=== PATIENT | male | born 1980 | race American Indian/Alaskan Native ===

== ENCOUNTER 2018-11-14 17:36 | Emergency (ER) | payer SELFPAY ==
[2018-11-14 17:46] VITALS: BP 117/78
--- NOTE | 2018-11-14 18:37 | Emergency Department Report ---
ED Male HPI - General Chief complaint: Abdominal Pain Stated complaint: STOMACH PAIN Time Seen by Provider: 11/14/18 18:33 Source: patient, family, spanish interpreter Mode of arrival: Ambulatory Limitations: Language Barrier - History of Present Illness Initial comments: 38-year-old male comes in for not to the left groin/lower abdominal pain for 2 months. Patient reports she was seen one month ago in [place] and was given pain medication. Patient has not taken anything for pain in the last month. Patient reports that he's had more pain than usual. Patient denies any urinary difficulties no nausea no vomiting no pain in testicles. Patient denies any blood in urine. Patient has no past medical history currently takes no medications on a daily basis and has no known drug allergies. Patient reports pain is worse when he coughs walks or strain. He reports pain is better with nothing. MD Complaint: hernia -: month(s) (2) Location: left inguinal region Severity: severe Severity scale (0 -10): 8 Quality: aching Consistency: intermittent Improves with: none Worsens with: bowel movement, other (cough, strain, walk) denies: discharge, swelling, mass, urinary retention, blood in urine, dysuria, fever, nausea/vomiting, incontinence - Related Data Previous Rx's Medication Instructions Recorded Last Taken Type Ibuprofen [Motrin 600 MG tab] 600 mg PO Q8H #15 tablet 11/14/18 Unknown Rx Allergies Allergy/AdvReac Type Severity Reaction Status Date / Time No Known Allergies Allergy Unverified 11/14/18 17:44 ED Review of Systems ROS: Stated complaint: STOMACH PAIN Other details as noted in HPI Comment: All other systems reviewed and negative Genitourinary: other (left groin pain) ED Past Medical Hx - Past Medical History Previous Medical History?: No - Surgical History Past Surgical History?: No - Social History Smoking Status: Never Smoker Substance Use Type: None - Medications Home Medications: Home Medications Medication Instructions Recorded Confirmed Last Taken Type Ibuprofen [Motrin 600 MG tab] 600 mg PO Q8H #15 tablet 11/14/18 Unknown Rx ED Physical Exam - General Limitations: Language Barrier (niece is translating.) General appearance: alert, in no apparent distress - Head Head exam: Present: atraumatic, normocephalic - Eye Eye exam: Present: normal appearance, EOMI - ENT ENT exam: Present: mucous membranes moist - Neck Neck exam: Present: normal inspection - GI/Abdominal GI/Abdominal exam: Present: soft. Absent: distended, tenderness, guarding - Expanded Exam Expanded exam: Inguinal Hernia: Left (nonincarcerated or strangulated) - Extremities Exam Extremities exam: Present: normal inspection, full ROM - Neurological Exam Neurological exam: Present: alert, oriented X3 - Psychiatric Psychiatric exam: Present: normal affect, normal mood - Skin Skin exam: Present: warm, dry, intact, normal color. Absent: rash ED Course Vital Signs 11/14/18 17:44 Temperature 98.3 F Pulse Rate 66 Respiratory 16 Rate Blood Pressure 117/78 O2 Sat by Pulse 98 Oximetry ED Medical Decision Making - Medical Decision Making Patient evaluated by this provider Ibuprofen given for pain management Referral to general surgeon to be evaluated for left inguinal nonincarcerated non-strangulated hernia. Critical care attestation.: If time is entered above; I have spent that time in minutes in the direct care of this critically ill patient, excluding procedure time. ED Disposition Clinical Impression: Simple left inguinal hernia Disposition: DC-01 TO HOME OR SELFCARE Is pt being admited?: No Does the pt Need Aspirin: No Condition: Stable Instructions: Inguinal Hernia (ED) Additional Instructions: Please take pain medication as prescribed. Please increase her water intake and take with food. He need to follow up with a general surgeon I have listed several below free to follow up to be evaluated for your hernia. Por favor, tome la medicacin para el dolor segn lo prescrito. Por favor aumentar moore consumo de agua y pauly con la comida. Tiene que hacer un seguimiento con un cirujano general. He enumerado varios de los siguientes a continuacin, neema seguimiento para que se evale moore hernia. Prescriptions: Ibuprofen [Motrin 600 MG tab] 600 mg PO Q8H #15 tablet Referrals: GAGAN LU MD [Staff Physician] - 3-5 Days HEDY ROSENTHAL MD [Staff Physician] - 3-5 Days JAS OTTO MD [Staff Physician] - 3-5 Days MARCELINO VIVAS DO [Staff Physician] - 3-5 Days Forms: Accompanied Note, Work/School Release Form(ED) Print Language: BARBADIAN
[2018-11-14] MEDS ORDERED: IBUPROFEN PO ONE (18:48)
== END 2018-11-14 19:05 | disposition home or self-care (01) ==
LOC: ED 17:36
DX: K40.90 Unilateral inguinal hernia, without obstruction or gangrene, not specified as recurrent (principal)
CPT/HCPCS: 99282